=== PATIENT | male | born 1930 | race Caucasian/White ===

== ENCOUNTER 2018-01-23 09:06 | Emergency (ER) | payer MEDICARE ==
[~2018-01-23] VITALS: Ht 180.3 cm; Wt 100.0 kg
[2018-01-23 09:09] VITALS: BP 171/98
[2018-01-23] MEDS ORDERED: OXYMETAZOLINE NASAL SPRAY 0.05%, 15ML ONE (09:29)
[2018-01-23] MEDS ORDERED: ATOR20TA9 PO (09:47)
[2018-01-23] MEDS ORDERED: OMEP-110 PO (09:47)
[2018-01-23] MEDS ORDERED: FOLI0.4T2 PO (09:47)
[2018-01-23] MEDS ORDERED: DIPH,PERTUSS(ACELL),TET VAC/PF 0.5 ML IM-VACC ONE (10:00)
[2018-01-23] MEDS ORDERED: OXYMETAZOLINE NASAL SPRAY 0.05%, 15ML NAS ONE (10:00)
[2018-01-23] MEDS ORDERED: LIDOCAINE 1%, 20ML INFIL ONE (10:00)
[2018-01-23] MEDS ORDERED: LIDOCAINE GEL 2%, 5ML ONE (10:47)
[2018-01-23] MEDS ORDERED: MICROFIBRILLAR COLLAGEN 1 GM TP ONE (10:55)
[2018-01-23] MEDS ORDERED: LIDOCAINE GEL 2%, 5ML TP ONE (11:00)
[2018-01-23] MEDS ORDERED: BACITRACIN ZINC OINT 500U/GM, 0.9 GM ONE (11:40)
== END 2018-01-23 12:40 | disposition home or self-care (01) ==
LOC: ED 12:30
DX: S01.81XA Laceration without foreign body of other part of head, initial encounter (principal); S00.31XA Abrasion of nose, initial encounter; R04.0 Epistaxis; E78.00 Pure hypercholesterolemia, unspecified; K21.9 Gastro-esophageal reflux disease without esophagitis; W01.0XXA Fall on same level from slipping, tripping and stumbling without subsequent striking against object, initial encounter; Y93.01 Activity, walking, marching and hiking; Y92.89 Other specified places as the place of occurrence of the external cause; Y99.8 Other external cause status
CPT/HCPCS: 12013; 30905; 70450; 70486; 72125